=== PATIENT | male | born 1940 | race Caucasian/White ===

== ENCOUNTER → 2020-12-14 | Outpatient (CLI) | payer MEDICARE ==
[2020-12-14 21:51] LABS: African American GFR (CKD) 96.5 (60.0-200.0); Albumin 4.2 g/dL (3.8-4.9); Albumin/Globulin Ratio 1.71 (1.60-3.17); Anion Gap 13.2 mmol/L (4.00-12.00); BUN/Creat Ratio 17.66 Ratio (12.00-20.00); Blood Urea Nitrogen 15.1 mg/dL (9.0-27.0); Calcium 9.2 mg/dL (8.7-10.3); Carbon Dioxide 23.3 mmol/L (21.6-31.8); Globulin 2.4 g/dL (1.6-3.3); Non-African American GFR(CKD) 83.3 (60.0-200.0); Total Bilirubin 0.4 mg/dL (0.30-1.20); Total Protein 6.6 g/dL (6.2-8.2)
== END | disposition home or self-care (01) ==
LOC: LABWHC1 12:49
PROVIDERS: ATTEND Nurse Practitioner Family
DX: M17.9 Osteoarthritis of knee, unspecified (principal)
CPT/HCPCS: 36415; 80053

== ENCOUNTER → 2021-03-01 | Outpatient (CLI) | payer MEDICAID, MEDICARE ==
--- NOTE | 2021-03-02 08:05 | US ---
EXAMINATION TYPE: US scrotum with doppler. DATE OF EXAM: 03/01/2021 COMPARISON: NONE CLINICAL HISTORY: 80-year-old male N50.811 Right testicular pain, R22.41. Right inguinal palp x 1 mon th. No injury. TECHNIQUE: Grayscale and color Doppler Duplex imaging performed of the scrotum. FINDINGS: EXAM MEASUREMENTS: TESTICLES: Right Testicle: 3.5 x 3.2 x 2.6 cm Left Testicle: 4.0 x 3.4 x 2.9 cm EPIDIDYMIS HEAD: Right Epididymis: 0.8 x 0.7 x 0.7 cm Left Epididymis: 1.2 x 0.9 x 1.0 cm Doppler performed to assess for testicular vascularity; good bilateral color flow and waveforms are s een. There is no evidence of testicular torsion. Presence of hydroceles: Smaller on the left, trace on the right Presence of varicoceles: no Rickshaw Driver notes: Right inguinal/palpable area scanned. Cystic lesion visualized at area of concern = 1.8 x 2.0 x 1.5 cm IMPRESSION: 1. The right inguinal palpable area corresponds to a 2.0 cm cyst. This could represent a small encys ghassan hydrocele along the inguinal canal. Consider urology evaluation. 2. Small left and trace right hydroceles. No evidence for testicular torsion.
== END | disposition home or self-care (01) ==
LOC: RADUSWWP 16:42
PROVIDERS: ATTEND Family Medicine
DX: N43.3 Hydrocele, unspecified (principal); R22.41 Localized swelling, mass and lump, right lower limb
CPT/HCPCS: 76870; 93975

== ENCOUNTER → 2021-04-25 | Outpatient (CLI) | payer MEDICARE, MEDICAID ==
--- NOTE | 2021-04-25 22:34 | MR ---
MRI CERVICAL SPINE: CLINICAL HISTORY: Paresthesia of skin. Hand and feet numbness. TECHNIQUE: Multiplanar, multisequence imaging of the cervical spine is performed without and with IV contrast. COMPARISON: None. FINDINGS: Sagittal images of the cervical spine show the craniocervical junction to appear within nor mal limits. The cervical and upper thoracic spinal cord shows diminished AP diameter with abnormal i ncreased vertical signal anteriorly beginning lower C3 level extending through the lower C5 level. Ve rtebral body heights are maintained with ossific fusion along the posterior aspect of the vertebrae i n the posterior elements involving C2-C3 and C3-C4 vertebra. Additional advanced disc space narrowing C4-C5 and C5-C6 levels with advanced spurring. Moderate disc space narrowing C6-C7 level. Coronal im ages show S-shaped scoliotic curvature extending into the mid thoracic spine. The bone marrow signal intensity is within normal limits. Axial images C2-C3 level are within normal limits. Axial images at C3-C4 level also are within normal limits. Axial images at C4-C5 level shows broad-based central disc protrusion effaces the anterior thecal sac up to ventral surface of spinal cord along with uncovertebral facet degenerative changes causing mil [id number] bilateral neural foraminal narrowing on axial image 48. Axial images at C5-C6 level showed asymmetric mild to moderate left-sided neural foraminal narrowing on axial image 42. Axial images at C6-C7 level appear within normal limits. Axial images at C7-T1 level show right paracentral disc protrusion effacing the anterior thecal sac c orresponding to sagittal image 11, patent bilateral neural foramina. IMPRESSION: Scoliosis. Multilevel advanced degenerative changes as detailed above. Areas of ossific f usion are present.
== END | disposition home or self-care (01) ==
LOC: RADMRIMAIN 08:03
PROVIDERS: ATTEND Family Medicine
DX: M47.812 Spondylosis without myelopathy or radiculopathy, cervical region (principal); M41.84 Other forms of scoliosis, thoracic region; M43.22 Fusion of spine, cervical region; M50.23 Other cervical disc displacement, cervicothoracic region
CPT/HCPCS: 72141

== ENCOUNTER → 2021-08-04 | Outpatient (CLI) | payer MEDICARE, MEDICAID ==
[2021-08-04 09:42] LABS: Appearance,Urine Clear (Clear); Bilirubin,Urine Negative (Negative); Blood,Urine Negative (Negative); Color,Urine Yellow; Glucose,Urine (UA) Negative (Negative); Ketones,Urine Negative (Negative); Leukocyte Esterase,Urine Negative (Negative); Nitrite,Urine Negative (Negative); PH, Urine 6.5 (5.0-8.0); Protein,Urine Negative (Negative); Urobilinogen,Urine <2.0 mg/dL (<2.0)
[2021-08-04 15:14] LABS: ALT 14 U/L (10-49); AST 20 U/L (14-35); African American GFR (CKD) 82.6 (60.0-200.0); Albumin 4.5 g/dL (3.8-4.9); Alkaline Phosphatase 60 U/L (41-126); Blood Urea Nitrogen 18.3 mg/dL (9.0-27.0); Calcium 9.6 mg/dL (8.7-10.3); Carbon Dioxide 28.7 mmol/L (20.0-27.5); Chloride 104 mmol/L (96-109); Chol/HDL Ratio 3.16 Ratio; Globulin 2.5 g/dL (1.6-3.3); Glucose 96 mg/dL (70-110); LDL Cholesterol,Calculated 98.8 mg/dL (0.0-131.0); Non-African American GFR(CKD) 71.3 (60.0-200.0); Potassium 5.4 mmol/L (3.5-5.5); Sodium 141 mmol/L (135-145); VLDL Calculation 13.26 mg/dL (5.00-40.00)
== END | disposition home or self-care (01) ==
LOC: LABWHC1 07:53
PROVIDERS: ATTEND Nurse Practitioner Family
DX: Z01.812 Encounter for preprocedural laboratory examination (principal); E78.2 Mixed hyperlipidemia
CPT/HCPCS: 36415; 80053; 80061; 81003

== ENCOUNTER → 2021-08-04 | Outpatient (CLI) | payer MEDICARE, MEDICAID ==
[2021-08-04 09:22] LABS: Partial Thromboplastin Time 24.3 sec (22.0-30.0); Prothrombin Time 10.8 sec (9.0-12.0)
--- NOTE | 2021-08-04 10:16 | XR ---
EXAMINATION TYPE: XR chest 2V DATE OF EXAM: 08/04/2021 COMPARISON: None INDICATION: Presurgical clearance TECHNIQUE: Frontal and lateral views of the chest are obtained. FINDINGS: The heart size is normal. The pulmonary vasculature is normal. The lungs are clear. Right shoulder prosthesis is present. IMPRESSION: 1. No acute pulmonary process.
[2021-08-04 14:14] LABS: Basophils # (A) 0.07 X 10*3/uL (0.00-0.10); Basophils % (A) 0.9 %; Eosinophils # (A) 0.22 X 10*3/uL (0.04-0.35); Eosinophils % (A) 2.9 %; HCT 41.5 % (39.6-50.0); HGB 13.3 g/dL (13.0-17.0); Immature Grans, Automated 0.4 %; Lymphocytes # (A) 2.13 X 10*3/uL (0.90-5.00); Lymphocytes % (A) 28.1 %; MCH 31.6 pg (27.0-32.0); MCV 98.6 fL (80.0-97.0); Mean Platelet Volume 9.5 fL (9.5-12.2); Monocytes # (A) 0.64 X 10*3/uL (0.20-1.00); Monocytes % (A) 8.4 %; NRBC Per 100 WBC 0 /100 WBCS (0.0-0.0); Neutrophils % (A) 59.3 %; Platelet Count 275 X 10*3/uL (140-440); RBC 4.21 X 10*6/uL (4.40-5.60); RDW 13.3 % (11.5-14.5); WBC 7.59 X 10*3/uL (4.50-10.00)
== END | disposition home or self-care (01) ==
LOC: LABPAT 07:56
PROVIDERS: ATTEND Orthopaedic Surgery Orthopaedic Surgery of the Spine
DX: Z01.818 Encounter for other preprocedural examination (principal); G95.9 Disease of spinal cord, unspecified
CPT/HCPCS: 71046; 85025; 85610; 85730

== ENCOUNTER → 2021-08-30 | Outpatient (CLI) | payer MEDICARE, MEDICAID ==
[2021-08-30 11:47] LABS: Partial Thromboplastin Time 24.4 sec (22.0-30.0); Prothrombin Time 10.7 sec (9.0-12.0)
[2021-08-30 14:26] LABS: Appearance,Urine Clear (Clear); Bilirubin,Urine Negative (Negative); Blood,Urine Negative (Negative); Color,Urine Yellow (Yellow); Ketones,Urine Negative (Negative); Nitrite,Urine Negative (Negative); Specific Gravity,Urine 1.013 (1.001-1.030)
[2021-08-30 14:29] LABS: Basophils # (A) 0.05 X 10*3/uL (0.00-0.10); Basophils % (A) 0.9 %; Eosinophils # (A) 0.18 X 10*3/uL (0.04-0.35); Eosinophils % (A) 3.2 %; HCT 40.4 % (39.6-50.0); HGB 12.7 g/dL (13.0-17.0); Immature Grans, Automated 0.2 %; Lymphocytes # (A) 1.72 X 10*3/uL (0.90-5.00); Lymphocytes % (A) 30.9 %; MCH 30.9 pg (27.0-32.0); MCHC 31.4 g/dL (32.0-37.0); MCV 98.3 fL (80.0-97.0); Monocytes # (A) 0.61 X 10*3/uL (0.20-1.00); NRBC Per 100 WBC 0 /100 WBCS (0.0-0.0); Neutrophils # (A) 2.99 X 10*3/uL (1.80-7.70); Neutrophils % (A) 53.8 %; Platelet Count 237 X 10*3/uL (140-440); RBC 4.11 X 10*6/uL (4.40-5.60); RDW 13.2 % (11.5-14.5); WBC 5.56 X 10*3/uL (4.50-10.00)
[2021-08-30 14:43] LABS: African American GFR (CKD) 79.7 (60.0-200.0); Anion Gap 9.5 mmol/L (10.00-18.00); BUN/Creat Ratio 19.22 Ratio (12.00-20.00); Blood Urea Nitrogen 19.8 mg/dL (9.0-27.0); Carbon Dioxide 26.6 mmol/L (20.0-27.5); Non-African American GFR(CKD) 68.8 (60.0-200.0); Potassium 4.8 mmol/L (3.5-5.5)
== END | disposition home or self-care (01) ==
LOC: LABPAT 10:51
PROVIDERS: ATTEND Orthopaedic Surgery Orthopaedic Surgery of the Spine
DX: Z01.812 Encounter for preprocedural laboratory examination (principal); M50.00 Cervical disc disorder with myelopathy, unspecified cervical region
CPT/HCPCS: 80048; 81003; 85025; 85610; 85730

== ENCOUNTER 2021-09-11 06:19 | Day surgery (SDC) | payer MEDICARE, MEDICAID ==
[2021-08-11 16:09] VITALS: BMI 27.6
[~2021-09-11 06:19] MED LIST: DEXAMETHASONE SOD PHOSPHATE 4 MG/ML 1 ML VIAL IV ONE; HYDROmorphone 0.5 MG/0.5 ML SYRINGE IVP PRN; LIDOCAINE 1% (10MG/ML) FOR IV START INTRADERMA PRN; ONDANSETRON 4 MG/2 ML VIAL IVP ONE; ONDANSETRON 4 MG/2 ML VIAL IVP PRN; ceFAZolin 1,000 MG in SODIUM CHLORIDE 0.9% IRRIGATIO 1,000 ML IRRIGATION PRN
[2021-09-11] MEDS: LACTATED RINGERS 1,000 ML IV SCH (06:43)
[2021-09-11] MEDS ORDERED: NEOSTIGMINE 1 MG/ML 10 ML VIAL ONE (07:26)
[2021-09-11] MEDS ORDERED: SUCCINYLCHOLINE CHLORIDE 100 MG/5 ML SYR IV ONE (07:26)
[2021-09-11] MEDS ORDERED: PROPOFOL 10 MG/ML 20 ML VIAL IV ONE (07:26)
[2021-09-11] MEDS ORDERED: ePHEDrine 50 MG/ML 1 ML VIAL ONE (07:26)
[2021-09-11] MEDS ORDERED: LIDOCAINE 2% INJ 20 MG/ML (2 ML VIAL) ONE (07:26)
[2021-09-11] MEDS ORDERED: GLYCOPYRROLATE 0.2 MG/ML 2 ML VIAL ONE (07:26)
[2021-09-11] MEDS ORDERED: fentaNYL (PF) 50 MCG/ML 2 ML AMP ONE (07:26)
[2021-09-11] MEDS ORDERED: DEXAMETHASONE SOD PHOSPHATE 10 MG/ML 1 ML VIAL ONE (07:26)
[2021-09-11] MEDS ORDERED: ROCURONIUM 10 MG/ML (5 ML VIAL) IV ONE (07:26)
[2021-09-11] MEDS ORDERED: LIDOCAINE 0.5%-EPI 1:200,000 50 ML VIAL SQ ONE (07:30)
[2021-09-11] MEDS ORDERED: THROMBIN (BOVINE) 5,000 UNIT VIAL TOPICAL ONE (07:30)
[2021-09-11] MEDS ORDERED: GELATIN SPONGE,ABSORB (LARGE) 1 EACH SPONGE TOPICAL ONE (07:30)
[2021-09-11] MEDS ORDERED: LACTATED RINGERS 1,000 ML IV ONE (08:51)
--- NOTE | 2021-09-11 09:10 | XR ---
Intraoperative localization History: Needle Placement Crosstable lateral view of the cervical spine. Localization needle is at the C4-5 level.
--- NOTE | 2021-09-11 09:47 | XR ---
EXAMINATION TYPE: XR cervical spine limited DATE OF EXAM: 09/11/2021 CLINICAL HISTORY: Hardware placement TECHNIQUE: Crosstable lateral view cervical spine COMPARISON: None. FINDINGS: Changes of ACDF at C4-5. Anterior fixation plate and intervertebral body stabilizer appear to be well positioned. IMPRESSION: As above
[2021-09-11] MEDS ORDERED: HYDROcodone/APAP 5-325MG 1 EACH TAB PO PRN (09:53)
[2021-09-11] MEDS ORDERED: ONDANSETRON 4 MG/2 ML VIAL IVP PRN (09:53)
[2021-09-11] MEDS ORDERED: HYDROmorphone 0.5 MG/0.5 ML SYRINGE IVP PRN (09:53)
[2021-09-11] MEDS ORDERED: BENZOCAINE/MENTHOL LOZENG 1 EACH LOZENGE MUCOUS MEM PRN (09:53)
[2021-09-11] MEDS ORDERED: NITROGLYCERIN SL TABS 0.4 MG TAB SUBLINGUAL PRN (09:55)
--- NOTE | 2021-09-11 10:03 | P.OP ---
Date of Procedure: 09/11/21 Preoperative Diagnosis: Cervical myelopathy, cervical myelomalacia, upper extremity weakness, severe cervical stenosis C3 4 5, cervical stenosis C5 6, degenerative disc disease C4 5 and C5 6, autofusion C2 to see for, autofusion C6 7 Postoperative Diagnosis: Cervical myelopathy, cervical myelomalacia, upper extremity weakness, severe cervical stenosis C3 4 5, cervical stenosis C5 6, degenerative disc disease C4 5 and C5 6, autofusion C2 to see for, autofusion C6 7, plus findings autofusion at C56 Anesthesia: GETA Pathology: none sent Condition: stable Disposition: PACU Description of Procedure: BRIEF OPERATIVE NOTE Preoperative Diagnosis:Cervical myelopathy, cervical myelomalacia, upper extremity weakness, severe cervical stenosis C3 4 5, cervical stenosis C5 6, degenerative disc disease C4 5 and C5 6, autofusion C2 to see for, autofusion C6 7 Postoperative Diagnosis:Cervical myelopathy, cervical myelomalacia, upper extremity weakness, severe cervical stenosis C3 4 5, cervical stenosis C5 6, degenerative disc disease C4 5 and C5 6, autofusion C2 to see for, autofusion C6 7, in addition to findings of autofusion at C5 6 Procedure: Anterior cervical decompression with discectomy and fusion C4 5 Placement of interbody graft C4 5 Application of anterior cervical plate C4 5 Exploration of C5 6 with findings of autofusion at that level will Surgeon: Dr. Flores Cone Machine Feeder: Edwar ANDREWS who is present throughout the entire the case persistence during positioning, dissection, exposure, visualization, and all crucial elements of the case as well as closure. Anesthesia: General anesthesia Estimated blood loss: Approximately 50 mL Complications: None apparent Components implanted: K2M [place] anterior cervical plate system with Vikos interbody allograft bone graft and a half cc of DBX bone putty Disposition: To recovery room in good stable condition. OPERATIVE INDICATIONS The patient has had long-standing issues in their neck and upper extremities. He is having worsening symptoms with his balance and his upper extremities with some weakness and difficulty with coordination. He was found have severe stenosis C 4 5 with stenosis C5 6 and evidence of multiple levels of congenital and autofusion at his cervical spine. He had evidence of cervical myelomalacia which correlated with his myelopathic symptoms. I felt that most of his symptoms are stemming from C4 5 level but he had evidence of disc protrusion at C5 6 as well. The other levels appeared to be fused and stable. The patient has been through conservative treatment. We discussed various treatment options including surgery, and the patient wishes to proceed with surgery We discussed the risk, patient's alternatives and benefits of surgery including but not limited to, risk of bleeding risk of infection, risk of need for further surgery, risk of decreased, loss of motion, muscle function, malunion nonunion, hardware failure, nerve damage, paralysis, heart attack, and . OPERATIVE SUMMARY After discussing all the risks, patient alternatives and benefits at length, the patient elected to proceed with surgical intervention, signed informed consent, and presented for their procedure. The patient was seen and examined in the preoperative holding area and the surgical site was marked. The patient was given antibiotics and brought to the operating room. The patient was positioned on the operating room table in a supine position being careful to pad any bony prominences and pressure points. The patient was sedated and intubated by anesthesia in standard fashion. Once the airway and C- spine were stabilized the patient's arms were padded and tucked at her side, with her shoulders gently taped. The head was placed in a donut pad with the neck in good neutral alignment and position. We were careful to maintain the patient's cervical spine and good neutral alignment and position throughout. The patient was prepped and draped in a normal standard fashion. An appropriate timeout and keystone protocol performed. We were able to proceed with the surgery. The local wound area was infiltrated with local anesthetic. An incision was made transversely approximately 2-1/2 cm over the appropriate levels at C5. Dissection was taken down subcutaneously to the level of the platysma which was split in line with its fibers. Dissection was taken with a carotid approach, with the trachea and esophagus medial and the carotid sheath laterally. We dissected down to the anterior surface of the vertebral bodies. I feel a large osteophytes at C3 4 5. Intraoperative x-ray was taken which showed a marker at the appropriate level C4 5. With the appropriate level positively confirmed, we were able to proceed with discectomy at the appropriate levels of C4 5. All of the operative levels were exposed appropriately. The patient had all their twitches back, and there was no evidence of recurrent la ryngeal issue. The wound was copiously irrigated and suctioned dry as had been done periodically throughout the case. At the C4 5 level, I established an annulotomy with an 11 blade scalpel. There is severe disc loss throughout and large anterior and posterior osteophytic spurring. A discectomy was performed with a combination of pituitary rongeurs, curettes, a high-speed bur, and Kerrison rongeurs. The posterior longitudinal ligament was taken down as were any posterior osteophytes. I don't have further portions of the C5 as well to get decompression behind the upper portion of the vertebral body. This gave good central and bilateral foraminal decompression. There is no evidence of any dural tear or leak. The endplates were prepared with a high-speed bur. With the endplates in good parallel position, I was able to size for the appropriate size interbody graft. The wound was irrigated and suctioned dry the graft was prepared and malleted into position. It had good alignment and position with the anterior surface flush with the anterior surface of the vertebral bodies. I explored the C5 6 level. There was obvious bridging bone at that level. I removed some of bone to try to explore the disc space. There is evidence of bridging bone across the interbody space and there is no evidence of any motion at all at C5 6. I felt that it was autofused. With the severe stenosis and myelopathy. Stem from C4 5 level I decided to leave C5 6 in its auto fused state and not take down the autofusion. With the grafts intact at C4 5, I was able to measure and contour and a ppropriate sized plate. The plate was positioned at the midline over the appropriate levels. Screw holes were established with a hand drill and drill guide. Screws were placed in good alignment and position with excellent bony purchase. They were seated under the locking device. The construct was checked and found to be stable. Intraoperative x-ray was taken which showed good alignment and position of the implants at the appropriate levels. There was no evidence of any dural tear or leak. Good hemostasis was maintained. The wound was copiously irrigated and suctioned dry as had been done periodically throughout the case. The platysma was closed with absorbable suture. The subcutaneous tissue was closed. The subcuticular tissue was closed with absorbable suture. The wound was cleaned and dried and dressed appropriately. A soft cervical collar was placed appropriately. The patient was woken up by anesthesia, extubated, transferred back gently to their hospital bed and brought to the recovery room in good stable condition. The patient will be admitted to the hospital for appropriate postoperative care, medical management and monitoring. We will continue to follow them closely about the postoperative course.
[2021-09-11] MEDS: SODIUM CHLORIDE 0.9% 1,000 ML IV SCH ×2 (15:33→23:22)
[2021-09-11] MEDS: SYMBICORT 160-4.5 MCG INHALER INHALATION SCH (20:34)
[2021-09-11] MEDS: IPRATROPIUM 0.5 MG/2.5 ML NEBU INHALATION SCH (20:35)
[2021-09-11] MEDS ORDERED: TAMSULOSIN 0.4 MG CAP.ER.24H PO SCH (21:00)
[2021-09-11] MEDS ORDERED: LOSARTAN 25 MG TAB PO SCH (21:00)
[2021-09-12] MEDS: LACTATED RINGERS 1,000 ML IV SCH (07:55)
[2021-09-12 08:17] VITALS: BP 97/54; RESP 18; TEMP 98.4
[2021-09-12] MEDS: SYMBICORT 160-4.5 MCG INHALER INHALATION SCH (08:27)
[2021-09-12] MEDS: IPRATROPIUM 0.5 MG/2.5 ML NEBU INHALATION SCH (08:27)
[2021-09-12 08:30] VITALS: PULSE 68
[2021-09-12] MEDS: SODIUM CHLORIDE 0.9% 1,000 ML IV SCH (08:39)
[2021-09-12] MEDS ORDERED: ATORVASTATIN 10 MG TAB PO SCH (09:00)
[2021-09-12] MEDS ORDERED: ASPIRIN 81 MG PO SCH (09:00)
[2021-09-12] MEDS ORDERED: SENNOSIDES-DOCUSATE SODIUM 1 EACH TAB PO SCH (09:00)
--- NOTE | 2021-09-12 09:07 | P.DS ---
Providers Date of admission: 09/11/2021 Expected date of discharge: 09/12/21 Attending physician: Alberto Flores Primary care physician: Micah Mendoza - Discharge Diagnosis(es) (1) Status post cervical spinal fusion Current Visit: Yes Status: Acute (2) Cervical cord myelomalacia Current Visit: Yes Status: Acute (3) Cervical myelopathy Current Visit: Yes Status: Acute (4) Upper extremity weakness Current Visit: Yes Status: Acute (5) Cervical stenosis of spinal canal Current Visit: Yes Status: Acute (6) Degenerative cervical disc Current Visit: Yes Status: Acute (7) Unsteady gait Current Visit: Yes Status: Acute (8) Shortness of breath Current Visit: Yes Status: Acute Hospital Course: This is a pleasant 81-year-old male who presented with cervical myelopathy, cervical myelomalacia, upper extremity weakness, C4-5 severe cervical stenosis, C5-6 cervical stenosis, cervical degenerative disc disease; 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 He was admitted for a C4-5 and C5-6 anterior cervical decompression and fusion but the performed procedure was a C4-5 anterior cervical decompression and fusion after exploration of C5-6 found evidence of autofusion at this level. The patient tolerated the procedure well and did well postoperatively. His pain has been adequately controlled. He has been utilizing a soft cervical collar. He does continue to have some numbness and tingling in his hands. He does feel he is ready for discharge home today. He is currently undergoing a breathing treatment at the bedside. We did discuss patient must be cleared by medicine prior to discharge home. Condition on day of discharge stable. Patient will be discharged home. Patient was cleared preoperatively for surgery by Dr. Don Mendoza III. Patient currently denies any nausea, vomiting, fever, or chills. Patient is eating and voiding freely without difficulty. Patient may shower Optifoam dressing intact. Patient may remove Optifoam dressing in 4 days and shower without a dressing at that time. Patient should refrain from driving until at least after their first follow-up appointment in the office. Patient should avoid excessive neck flexion, extension, rotation, and lateral sidebending; no overhead lifting; no lifting greater than 10 pounds. MAPS has been reviewed today, 09/12/2021, with an Overall Overdose Risk Score of 210. An "Opiod Start Talking" Form has been signed and placed in the patient's chart. A prescription has been written for [place] 5 mg/325 mg 1 tab every 6 hours as needed for pain, dispensed #28. Patient is also given a prescription for baclofen 10 mg 1 tab 3 times a day as needed for muscle spasm, dispensed #60. Medications are sent to the [facility] pharmacy located within [facility] per request of the patient. Patient's other medical diagnoses include shortness of breath and unsteady gait. 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, thumb strength, interosseous strength, biceps strength, triceps strength, and shoulder strength positive sustained bilaterally Soft cervical collar intact Incision is clean, dry, and intact; no erythema, purulence, or signs of infection No pain with palpation around the surgical site at the anterior cervical spine Optifoam dressing intact Procedures: C4-5 anterior cervical decompression and fusion with exploration of C5-6 with evidence of autofusion Patient Condition at Discharge: Stable Plan - Discharge Summary Discharge Rx Participant: Yes New Discharge Prescriptions: New Baclofen 10 mg PO TID PRN #60 tab PRN Reason: Spasms HYDROcodone/APAP 5-325MG [[place] 5] 1 each PO Q6HR PRN #28 tab PRN Reason: Pain No Action Tiotropium 18 Mcg/Puff [Spiriva] 2 puff INHALATION BID Nitroglycerin Sl Tabs [Nitrostat] 0.4 mg SUBLINGUAL Q5M PRN PRN Reason: Chest Pain Budesonide-Formot 160-4.5 Mcg [Symbicort 160-4.5 Mcg Inhaler] 2 puff INHALATION BID Rosuvastatin Calcium 5 mg PO DAILY Losartan [Cozaar] 25 mg PO HS Alfuzosin HCl [Alfuzosin HCl ER] 10 mg PO HS Meloxicam [Mobic] 15 mg PO HS Aspirin [Adult Low Dose Aspirin EC] 81 mg PO DAILY Discharge Medication List Alfuzosin HCl [Alfuzosin HCl ER] 10 mg PO HS 08/11/21 [History] Aspirin [Adult Low Dose Aspirin EC] 81 mg PO DAILY 08/11/21 [History] Budesonide-Formot 160-4.5 Mcg [Symbicort 160-4.5 Mcg Inhaler] 2 puff INHALATION BID 08/11/21 [History] Losartan [Cozaar] 25 mg PO HS 08/11/21 [History] Meloxicam [Mobic] 15 mg PO HS 08/11/21 [History] Nitroglycerin Sl Tabs [Nitrostat] 0.4 mg SUBLINGUAL Q5M PRN 08/11/21 [History] Rosuvastatin Calcium 5 mg PO DAILY 08/11/21 [History] Tiotropium 18 Mcg/Puff [Spiriva] 2 puff INHALATION BID 08/11/21 [History] Baclofen 10 mg PO TID PRN #60 tab 09/12/21 [Rx] HYDROcodone/APAP 5-325MG [[place] 5] 1 each PO Q6HR PRN #28 tab 09/12/21 [Rx] Follow up Appointment(s)/Referral(s): Edwar Mackey, ZEB [PHYSICIAN NURSE UNIT MANAGER] - 2 Weeks (Patient may follow-up with Edwar Mackey PA-C or Dr. Ludin Flores at [facility] in 2-3 weeks following discharge. ) Activity/Diet/Wound Care/Special Instructions: 1. Patient may shower with Optifoam dressing intact. 2. Patient may remove Optifoam dressing in 4 days and shower without a dressing at that time. 3. Patient may wear soft cervical collar for comfort support as needed. 4. Patient should refrain from driving until at least after their first follow- up appointment in the office. 5. Patient should avoid excessive cervical flexion, extension, and side bending; avoid overhead lifting; no lifting greater than 10 pounds 6. Take medications as prescribed 7. Patient should avoid anti-inflammatory medications over the next 6 weeks postoperatively 8. Do not soak in tub Discharge Disposition: HOME SELF-CARE
== END 2021-09-12 10:35 | disposition home or self-care (01) ==
LOC: OR 06:19 → 4SSUR 10:02 → OR 09-12 10:35
PROVIDERS: ATTEND Orthopaedic Surgery Orthopaedic Surgery of the Spine
DX: M50.021 Cervical disc disorder at C4-C5 level with myelopathy (principal); G95.89 Other specified diseases of spinal cord; M48.02 Spinal stenosis, cervical region; M43.22 Fusion of spine, cervical region; I11.9 Hypertensive heart disease without heart failure; J45.909 Unspecified asthma, uncomplicated; Z79.1 Long term (current) use of non-steroidal anti-inflammatories (NSAID); Z79.82 Long term (current) use of aspirin; Z79.51 Long term (current) use of inhaled steroids; Z79.899 Other long term (current) drug therapy; H26.9 Unspecified cataract; G43.909 Migraine, unspecified, not intractable, without status migrainosus; M19.90 Unspecified osteoarthritis, unspecified site; Z96.611 Presence of right artificial shoulder joint; Z96.641 Presence of right artificial hip joint; Z95.5 Presence of coronary angioplasty implant and graft; Z82.49 Family history of ischemic heart disease and other diseases of the circulatory system; Z83.3 Family history of diabetes mellitus; F17.210 Nicotine dependence, cigarettes, uncomplicated
CPT/HCPCS: 94640 ×3; 72040; 22551; 22845; 20931; C1713 ×2; C1762; J1100; J2710; J0690 ×2; J2405; J3010; J0330; J2704; J1170; J2001; 86850; 86900; 86901